=== PATIENT | female | born 1980 | race Two or more races ===

== ENCOUNTER 2024-03-02 15:44 | Emergency (ER) | payer OTHER, SELFPAY ==
[2024-03-02 15:46] VITALS: BP 109/74; PULSE 79; RESP 18; TEMP 36.6; O2SAT 99
--- NOTE | 2024-03-02 16:29 | XR_ITS ---
Examination: CT abdomen with intravenous contrast CT pelvis with intravenous contrast 2-D coronal reconstructions 2-D sagittal reconstructions Date and time of exam:March 02, 2024 1810 hrs. Indications: Patient fell 3 days ago with injury to the lower abdomen, lower abdominal pain and bruising CTDI: vol (mGy) 18 DLP: (mGycm) 669 Technique: Multiple axial images abdomen and pelvis post administration 60 cc [id number] Low dose protocols Automated exposure control ingestion MA KV according to patient size Findings: No pneumothorax No liver splenic or renal laceration No perinephric hematoma Significant scarring both kidneys, 2 mm nonobstructing right renal calculus Abdominal aorta intact Minimal skin thickening anterior abdomen Negative for pneumoperitoneum No free blood in the abdomen No pericecal inflammatory change Contracted urinary bladder which is intact Lumbar vertebral bodies sacral segments and iliac bones hips appear intact Impression: No abdominal parenchymal laceration Abdominal aorta intact No free blood in the abdomen or pelvis Significant bilateral renal parenchymal scar formation 2 mm right renal calculus
--- NOTE | 2024-03-02 16:31 | EDNOTE_ITS ---
<Statement entered by Jessica Gold MD - 03/02/24 20:23> As co-signing physician, I was present and available for consult prn. I concur with the plan and care as documented by the midlevel provider. ED Abdominal Pain RME/HPI General Chief Complaint: Abdominal Pain Stated complaint: ABDOMINAL PAIN S/P FALL 3 DAYS AGO Time seen by provider: 03/02/24 16:18 Arrival date/time: 03/02/24 15:44 RME / HPI RME / HPI narrative: 43-year-old female patient with no past medical history except for chronic back pain, came in for evaluation regarding left lower abdominal pain with bruising, patient sustained a ground-level fall about 3 days ago while putting the trash out, during that time pain was tolerable. She landed on her left side. Since yesterday her abdominal pain is getting worse was worried because the family noticed some bruising on the lower abdomen. Patient denies any vomiting denies any hematuria denies any fever. No medication was taken prior to arrival. Related Data Previous Rx's ?Medication ?Instructions ?Recorded ibuprofen 800 mg tablet 800 mg PO TID PRN pain #30 tabs 03/02/24 Allergies Allergy/AdvReac Type Severity Reaction Status Date / Time metoclopramide [From Reglan] Allergy Anxiety Verified 03/02/24 15:47 prochlorperazine Allergy Anxiety Verified 03/02/24 15:47 [From Compazine] rice Allergy Rash Verified 03/02/24 15:47 Review of Systems Review of Systems Narrative Review of Systems: Review of system reviewed and within normal limits except mentioned in HPI ED Exam Narrative Physical exam: VITAL SIGNS: Reviewed. GENERAL APPEARANCE: Alert and interactive, follows commands, no acute distress, HEAD AND FACE: Non-traumatic. ENT: PERRL, pink conjunctivitis, eyelid no trauma, Mucous membrane moist. NECK: Supple, nontender, no nuchal rigidity. CHEST: No tenderness, no crepitus, no paradoxical movement, no retractions. LUNGS: Clear, well ventilated, symmetric, no rales, no wheezing, no ronchi, no stridor, good breath sounds bilaterally. HEART: Regular rate, regular rhythm, no murmur, no gallops. ABDOMEN: Soft, positive bowel sounds, nondistended, no guarding, nontender, no rebound, no masses, RECTAL: Deferred. GENITAL: Deferred. NEUROLOGICAL: Gross motor function intact sensory function intact, Appropriate for age. MUSCULOSKELETAL: low back nontender, full range of motion. EXTREMITIES: Nontender, full range of motion. SKIN: Color pink, dry, no rash, no lacerations, infraumbilical bruising, tenderness noted on the left lower quadrant no bruising LYMPHATICS: Deferred. Course Quality Measures none Orders Category Date Time Status CT Screening NOW Care 03/02/24 16:[address] abdomen pelvis w con Stat Exams 03/02/24 16:29 Completed CBC Stat Lab 03/02/24 17:00 Completed Comprehensive Metabolic Panel Stat Lab 03/02/24 17:00 Completed HCG Qualitative,Urine Stat Lab 03/02/24 16:36 Completed Lipase Stat Lab 03/02/24 17:00 Completed Partial Thromboplastin Time Stat Lab 03/02/24 17:00 Completed Prothrombin Time with INR Stat Lab 03/02/24 17:00 Completed UA [Urinalysis] Stat Lab 03/02/24 16:36 Completed HYDROcodone/APAP 10/325 [Sutton 10/325] Med 03/02/24 19:58 Discontinued 1 tab PO X1 ONE Morphine Inj Med 03/02/24 17:49 Discontinued 4 mg IVP X1 ONE Morphine Inj [Morphine Sulf Inj] Med 03/02/24 16:29 Discontinued 4 mg IM X1 ONE Ondansetron Inj [Zofran Inj] Med 03/02/24 17:51 Discontinued 4 mg IV X1 ONE Ondansetron Odt [Zofran Odt] Med 03/02/24 16:29 Discontinued 4 mg PO X1 ONE Vital Signs Vital signs: Vital Signs Temperature 97.9 F 03/02/24 15:46 Pulse Rate 79 03/02/24 15:46 Respiratory Rate 18 03/02/24 15:46 Blood Pressure 109/74 03/02/24 15:46 Pulse Oximetry (%) 99 03/02/24 15:46 Oxygen Delivery Method Room Air 03/02/24 15:46 Abdominal Pain MDM MDM Narrative MDM Narrative:: 43-year-old female patient with no past medical history except for chronic back pain, came in for evaluation regarding left lower abdominal pain with bruising, patient sustained a ground-level fall about 3 days ago while putting the trash out, during that time pain was tolerable. She landed on her left side. Since yesterday her abdominal pain is getting worse was worried because the family noticed some bruising on the lower abdomen. Patient denies any vomiting denies any hematuria denies any fever. No medication was taken prior to arrival. Laboratory workup all came back unremarkable no sign of anemia noted. CT scan of the abdomen and pelvis also came back unremarkable. Results discussed with the patient. Patient received morphine. On reevaluation still having a little bit of pain patient was also given Sutton with significant improvement of pain patient is ambulatory. Patient data External records reviewed:: None Clinical information provided by:: none Social determinants that could affect healthcare access:: none Patient has the following chronic illnesses:: None How is presenting disease/condition affected by chronic disease/condition?: uneffected by Evaluation data The following diagnostics were reviewed and interpreted by me:: lab results and radiology exam(s) Lab and/or radiology exams considered but not ordered:: None Interpretation Summary: Laboratory workup all came back unremarkable no leukocytosis no anemia noted CT scan of the abdomen pelvis also came back normal. Medications / Prescriptions Medications or Prescriptions considered but not ordered:: none Medication administrations:: Medication Administration History Discontinued Medications Hydrocodone Bitart/Acetaminophen (Hydrocodone/Apap 10/325 Tab) 1 tab PO X1 ONE Stop: 03/02/24 19:59 Morphine Sulfate (Morphine Sulf Inj 4 Mg/Ml Vial) 4 mg IM X1 ONE Stop: 03/02/24 16:30 Last Admin: 03/02/24 17:57 Dose: Not Given Documented By: MOHINDER Non-Admin Reason: not available Morphine Sulfate (Morphine Sulf Inj 10 Mg/Ml Vial) 4 mg IVP X1 ONE Stop: 03/02/24 17:50 Last Admin: 03/02/24 17:55 Dose: 4 mg Documented By: MOHINDER Ondansetron HCl (Ondansetron Odt 4 Mg Tabrap) 4 mg PO X1 ONE; Protocol Stop: 03/02/24 16:30 Last Admin: 03/02/24 17:56 Dose: Not Given Documented By: MOHINDER Non-Admin Reason: Duplicate Medication on eMAR Ondansetron HCl (Ondansetron Inj 2 Mg/Ml Inj 2 Ml) 4 mg IV X1 ONE; Protocol Stop: 03/02/24 17:52 Last Admin: 03/02/24 17:56 Dose: 4 mg Documented By: MOHINDER Morphine, Zofran, and Sutton Consultations Consultation(s) initiated? (list below): No Diagnosis Differential diagnosis abdominal pain: abdominal pain and other (Intra-abdominal injury, bruising, abdominal pain, muscular) Most likely diagnosis given after review of the tests above:: Abdominal pain, status post fall Admission Indicated Admission indicated?: not indicated Explain why admission is indicated or not indicated:: Stable Admission Request Was there a request for admission?: No Disposition Plan Disposition Plan: Discharge Discharge Attestation Discharge Attestation: The patientwas given an opportunity to ask questions and understood the discharge instructions. Discharge instructions specifically effects, indications for sooner follow up or return to the emergency department, and the expected course of current diagnosis. Patient condition: Stable Discharge Plan Plan Patient Disposition: HOME (Self Care) Disposition Comment: stable Prescriptions/Referrals Prescriptions/Med Rec: New ibuprofen 800 mg tablet 800 mg PO TID PRN (Reason: pain) Qty: 30 0RF Referrals: No Primary/Family,Physician [Primary Care Provider] - In 1 week Problem List Clinical Impression: Abdominal pain, Fall Patient/Caregiver Discharge Instructions Discharge Activity: activity as tolerated Education Materials: Abdominal Pain Additional Instructions: Thank you for the opportunity for serving you today. You are stable for discharged . You are advised to: Follow-up with your PCP in 1 to 2 days Return to ED for worsening of symptoms Increase oral fluids Take medication as prescribed Print Language: [place] Stand Alone Forms: Jeanne Award Info., Patient Portal Info Letter PA/GILDA Supervising Physician ADORE/GILDA Supervising Physician: MD Lorin
[2024-03-02 16:53] LABS: Collection Type, Urine Clean Catch
[2024-03-02 16:59] LABS: Bilirubin,Urine Negative (Negative); Blood,Urine Negative (Negative); Clarity,Urine Clear (Clear/Hazy); Color,Urine Lt-Yellow (Lt Yel-Yel); Glucose, Urine Negative (Negative); HCG Qualitative,Urine Negative; Ketones,Urine Negative (Negative); Leukocyte Esterase,Urine Positive (Negative); Nitrite,Urine Negative (Negative); PH,Urine 6.5 (5.0-7.0); Protein,Urine Trace (Neg - Trace); RBC,Urine 5 /hpf (0-3); Squamous Epithelial Cell,Urine 9 /hpf (0-5); Urobilinogen,Urine Negative mg/dL (0.0-1.0); WBC,Urine 4 /hpf (0-5)
[2024-03-02 17:15] LABS: Basophils # (Auto) 0.1 Thou/mm3 (0.0-0.2); Basophils % (Auto) 1 % (0-2.5); Eosinophils # (Auto) 0.3 Thou/mm3 (0.0-0.5); Eosinophils % (Auto) 4 % (0-10); Hematocrit 42.8 % (36.0-46.0); Hemoglobin 14.1 g/dL (12.0-16.0); Immature Granulocytes % (Auto) 0 % (0-0); Immature Granulocytes Auto 0.02 Thou/mm3 (0.00-0.00); Lymphocytes # (Auto) 3.6 Thou/mm3 (1.0-4.8); Lymphocytes % (Auto) 44 % (10-50); Mean Corpuscular HGB Conc 32.9 g/dl (31.0-37.0); Mean Corpuscular Volume 85 fL (80-100); Monocytes # (Auto) 0.7 Thou/mm3 (0.0-0.8); Monocytes % (Auto) 9 % (0-12); Neutrophils # (Auto) 3.4 Thou/mm3 (1.8-7.7); Neutrophils % (Auto) 42 % (37-80); Nucleated Red Blood Cell % 0 /100 WBC (0); Platelet Count 235 Thou/mm3 (140-440); RDW Standard Deviation 40.3 fL (36.4-46.3); Red Blood Count 5.03 Miln/mm3 (4.00-5.20); White Blood Count 8.1 Thou/mm3 (3.6-11.0)
[2024-03-02 17:27] LABS: Partial Thromboplastin Time 25.8 Seconds (22.0-36.0); Prothrombin Time 11.4 Seconds (9.0-12.2)
[2024-03-02 17:30] LABS: Alanine Aminotransferase 27 U/L (10-49); Albumin, Serum 4.7 gm/dL (3.5-5.0); Albumin/Globulin Ratio 1.5 (1.2-2.2); Alkaline Phosphatase 107 U/L (46-116); Anion Gap 6 (7-16); Aspartate Amino Transferase 23 U/L (0-34); BUN/Creatinine Ratio 19 Ratio (12-20); Bilirubin,Total 0.3 mg/dL (0.3-1.2); Blood Urea Nitrogen 15 mg/dL (9-23); Carbon Dioxide 28.7 mMol/L (20.0-31.0); Chloride 103 mMol/L (98-107); Creatinine (Component) 0.8 mg/dL (0.6-1.3); Globulin 3.2 gm/dL (2.3-3.5); Glucose 91 mg/dL (74-106); Lipase 34 U/L (12-53); Osmolality,Calculated 276 (275-295); Potassium 4.4 mMol/L (3.4-5.1); Sodium 138 mMol/L (136-145); Total Protein 7.9 gm/dL (5.7-8.2); eGFR > 60 See Note
[2024-03-02] MEDS: MORPHINE SULF INJ 10 MG/ML VIAL 4 MG IVP (17:55)
[2024-03-02] MEDS: ONDANSETRON INJ 2 MG/ML INJ 2 ML 4 MG IV (17:56)
[2024-03-02] MEDS: HYDROcodone/APAP 10/325 TAB PO (20:03)
== END 2024-03-02 20:16 | disposition home or self-care (01) ==
PROVIDERS: Nurse Practitioner Family; Emergency Provider Emergency Medicine
DX: S30.1XXA Contusion of abdominal wall, initial encounter (principal); W18.30XA Fall on same level, unspecified, initial encounter
CPT/HCPCS: 36415; 74177; 80053; 81001; 81025; 83690; 85025; 85610; 85730; 96374; 99285; A4649; J2270; J2405; Q9967; A9270